=== PATIENT | male | born 1945 | race Caucasian/White ===

== ENCOUNTER 2021-10-27 13:17 | Emergency (ER) | payer MEDICARE, SELFPAY ==
[2021-10-27 13:32] VITALS: BP 161/93; PULSE 89; RESP 16; TEMP 36.6; O2SAT 96; BMI 29.2
--- NOTE | 2021-10-27 13:44 | CTR_ITS ---
PROCEDURE INFORMATION: Exam: CT Head Without Contrast Exam date and time: 10/27/2021 2:02 PM Age: 76 years old Clinical indication: Pain; Other: N/v; Headache not specified; Additional info: Severe headache with n/v TECHNIQUE: Imaging protocol: Computed tomography of the head without contrast. Radiation optimization: All CT scans at this facility use at least one of these dose optimization techniques: automated exposure control; mA and/or kV adjustment per patient size (includes targeted exams where dose is matched to clinical indication); or iterative reconstruction. COMPARISON: CT head wo con* [id number] 04/01/2016 1:31 AM RADIATION DOSE METRICS: Total DLP (mGy-cm): 886.06 FINDINGS: Brain: Moderate diffuse white matter disease likely reflecting chronic microvascular ischemic changes. Cerebral ventricles: No ventriculomegaly. Paranasal sinuses: Visualized sinuses are unremarkable. No fluid levels. Mastoid air cells: Visualized mastoid air cells are well aerated. Bones/joints: Unremarkable. No acute fracture. Soft tissues: Unremarkable. CT/CT head wo con* [id number] IMPRESSION: Negative for intracranial hemorrhage or mass effect
--- NOTE | 2021-10-27 13:54 | W.ED.HA ---
HPI - Headache General: Chief Complaint: Headache Stated Complaint: headache Time Seen by Provider: 10/27/21 13:43 History of Present Illness: Patient is a 76-year-old male comes to the ED with headache. Symptoms started yesterday. He does not have a history of migraine headaches and says he has never had a headache like this before. Pain starts at forehead and then radiates down the right side of his head and back to his neck. He rates the headache a 9 out of 10. He is also been having some nausea and vomiting with it. Denies any worsening of headache with loud noises or lights. Endorses some mild blurry vision since onset of headache. Denies any recent falls or head traumas to cause symptoms. Denies any numbness or tingling to 1 side of his body, weakness to 1 side of his body or any other neurological symptoms. Associated symptoms: Reports nausea and vomiting; Deny chest pain, fever(s) or rash Review of Systems Const: Denies: fever(s), chills or fatigue Eyes: Denies: change in vision or eye discomfort ENMT: Denies: throat pain, odynophagia, nasal discharge or nasal congestion Card: Denies: chest pain, palpitations, edema, swelling of feet/ankles, dyspnea on exertion or orthopnea Resp: Denies: dyspnea, productive cough or non-productive cough GI: Reports: nausea and vomiting; Denies: abdominal pain, diarrhea, constipation or hematochezia : Denies: flank pain, difficulty urinating, dysuria or hematuria Musc: Denies: neck pain, back pain or extremity swelling Skin/Breast: Denies: rash or new lesions Neuro: Reports: headache(s); Denies: numbness in extremities or weakness in extremities [facility] ED PFSH: Medical History No pertinent past medical history Surgical History No pertinent past surgical history Physical Exam Const: COMMON NORMALS: patient oriented x3 and alert GENERAL APPEARANCE: cooperative HENMT: COMMON NORMALS: normocephalic HEAD & SCALP: normocephalic MOUTH: Normal oral and palatal mucosa present THROAT: posterior oropharynx normal and uvula midline Eye: COMMON NORMALS: Equal, round and reactive pupils present, EOMs intact bilaterally and conjunctivae normal CONJUNCTIVA: Yes conjunctivae normal PUPIL: Yes Equal, round and reactive pupils present Neck/C-Spine: COMMON NORMALS: supple GENERAL: Yes normal visual inspection Resp: COMMON NORMALS: normal respiratory effort, No retractions, No use of accessory muscles and clear to auscultation bilaterally AUSCULTATION: clear to auscultation bilaterally Cardio: COMMON NORMALS: regular rate, regular rhythm, S1 normal heart sound present, S2 normal heart sound present, No gallops present (Cardio), No clicks present (Cardio), No murmurs present (Cardio) and Peripheral pulses 2+ throughout RATE: regular rate RHYTHM: regular rhythm HEART SOUNDS: S1 normal heart sound present and S2 normal heart sound present PERIPHERAL PULSES: Peripheral pulses 2+ throughout GI: COMMON NORMALS: Normal to inspection, nondistended, normoactive bowel sounds present, Soft to palpation, non-tender and no masses PALPATION: Yes Soft to palpation : COMMON NORMALS: Yes no CVA tenderness BLADDER/KIDNEY EXAM: Yes no CVA tenderness Back/Pelvis: COMMON NORMALS: no CVA tenderness Extremity: COMMON NORMALS: normal to inspection Neuro: COMMON NORMALS: patient oriented x3, CN's II-XII intact bilaterally, moves all extremities, no focal motor deficits and no sensory deficits noted SENSORIUM/ORIENTATION: Yes alert SENSORY EXAM: Yes extremities (intact) MOTOR EXAM: 5/5 motor strength present throughout Skin: GENERAL SKIN EXAM: dry skin Course Reevaluation(s): Reevaluation #1: Patient said his migraine is improved greatly and he now rates it a 4 out of 10. He says it is a lot more manageable and he like to go home and rest. Time: 15:28 Vital Signs: Vital signs: Vital Signs Temperature 97.8 F 10/27/21 13:32 Pulse Rate 78 10/27/21 15:35 Respiratory Rate 18 10/27/21 15:35 Blood Pressure 152/71 10/27/21 15:35 Pulse Oximetry 96 10/27/21 15:35 MDM - Headache Medical Decision Making Patient is a 76-year-old male comes to the ED with migraine headache. Denies any recent head injuries or trauma. He is having nausea and some vomiting. He rates his headache a 9 out of 10 and says the pain is in the forehead and radiates to the back of his head down into his neck. Vitals are stable. Exam of patient is benign and neuro exam showed no deficits. CBC and CMP were unremarkable. CT of head showed no intracranial hemorrhage or mass. Patient was given IV fluids, Reglan, Toradol, Benadryl and Decadron and his migraine improved. He was ready to be discharged home and rest. He was told to follow-up with his PCP in the next week for reevaluation return to ED precautions given. Patient understood and agreed with plan. Lab Data I reviewed the patient's lab results. : 10/27/21 13:58 10/27/21 13:[address] 10/27/21 13:44 IMPRESSION: Negative for intracranial hemorrhage or mass effect Laboratory Results WBC 9.5 10^3/uL (4.0-10.0) 10/27/21 13:58 RBC 5.07 10^6/uL (4.1-5.3) 10/27/21 13:58 Hgb 15.8 g/dL (11.7-16.6) 10/27/21 13:58 Hct 48.5 % (42.0-52.0) 10/27/21 13:58 MCV 95.7 fl (80-94) H 10/27/21 13:58 MCH 31.2 pg (28.0-34.0) 10/27/21 13:58 MCHC 32.6 g/dL (30.0-36.0) 10/27/21 13:58 RDW 14.4 % (12.1-15.1) 10/27/21 13:58 Plt Count 324 10^3/cmm (130-400) 10/27/21 13:58 MPV 9.3 fL (7.4-10.4) 10/27/21 13:58 Neut % (Auto) 77.3 % 10/27/21 13:58 Lymph % (Auto) 13.0 % 10/27/21 13:58 [place] % (Auto) 8.0 % 10/27/21 13:58 Eos % (Auto) 0.5 % 10/27/21 13:58 Baso % (Auto) 0.5 % 10/27/21 13:58 Neut # (Auto) 7.32 10^3/uL (1.8-7.7) 10/27/21 13:58 Lymph # (Auto) 1.2 10^3/uL (0.8-4.8) 10/27/21 13:58 [place] # (Auto) 0.8 10^3/uL (0.2-0.9) 10/27/21 13:58 Eos # (Auto) 0.1 10^3/uL (0.0-0.8) 10/27/21 13:58 Baso # (Auto) 0.1 10^3/uL (0.0-0.1) 10/27/21 13:58 Nucleated RBC % (auto) 0 % 10/27/21 13:58 Nucleated RBCs # 0.0 /100WBC 10/27/21 13:58 Sodium 135 mmol/L (136-145) L 10/27/21 13:58 Potassium 4.0 mmol/L (3.5-5.1) 10/27/21 13:58 Chloride 98 mmol/L (98-107) 10/27/21 13:58 Carbon Dioxide 27 mmol/L (22-29) 10/27/21 13:58 Anion Gap 14.0 (5-19) 10/27/21 13:58 BUN 13 mg/dL (8-23) 10/27/21 13:58 Creatinine 1.3 mg/dL (0.7-1.2) H 10/27/21 13:58 GFR Calculation Not Reportable 10/27/21 13:58 Glucose 152 mg/dL (65-115) H 10/27/21 13:58 Calculated Osmolality 283 mOsm/kg (285-295) L 10/27/21 13:58 Calcium 8.5 mg/dL (8.5-10.5) 10/27/21 13:58 Total Bilirubin 0.7 mg/dL (0.15-1.2) 10/27/21 13:58 AST 14 U/L (0-40) 10/27/21 13:58 ALT 6 U/L (0-41) 10/27/21 13:58 Alkaline Phosphatase 71 IU/L (40-130) 10/27/21 13:58 Total Protein 6.8 g/dL (6.6-8.7) 10/27/21 13:58 Albumin 3.9 g/dL (3.5-5.2) 10/27/21 13:58 Globulin 2.9 g/dL (1.3-4.6) 10/27/21 13:58 Discharge Plan Discharge Patient Disposition: Home Clinical Impression: Migraine headache Qualifiers: Migraine type: without aura Status migrainosus presence: without status migrainosus Intractability: not intractable Qualified Code(s): G43.009 - Migraine without aura, not intractable, without status migrainosus Condition: Stable Discharge Orders: Discharge ED (Routine); Ordered 10/27/21 Ordered By: Yusuf Porter Referrals: Esther Cruz NP [Primary Care Provider] - Discharge Diet: Regular Discharge Activity: Increase activity as tolerated Patient Instructions: Headache - Migraine (Adult) Activity Restrictions/Additional Instructions: Follow-up with medical provider as directed next 5 to 7 days reevaluation. Take [id number] Tylenol or Motrin for any reoccurring headaches. Return to the ER or your medical provider if condition worsens. Please read and understand discharge instructions. Thank you for choosing [facility] for your healthcare needs today. Please realize this is an emergency room and that we are providing you with a medical screening exam and this may not be complete and all inclusive of all the testing and or work up that you may need to determine your ailment or severity of your illness. It is very important that you follow up as instructed or that you return to the Emergency Department should you have concerns or if your condition changes or worsens in any way. Coding Level of Care Code ED Lasting Room Machine Operator for Opal Fwsoo Exam Comprehensive
[2021-10-27 14:06] LABS: Basophils # 0.1 10^3/uL (0.0-0.1); Basophils % 0.5 %; Eosinophils # 0.1 10^3/uL (0.0-0.8); Eosinophils % 0.5 %; Hematocrit 48.5 % (42.0-52.0); Hemoglobin 15.8 g/dL (11.7-16.6); Lymphocytes # 1.2 10^3/uL (0.8-4.8); Mean Corpuscular HGB Conc 32.6 g/dL (30.0-36.0); Mean Corpuscular Hemoglobin 31.2 pg (28.0-34.0); Mean Corpuscular Volume 95.7 fl (80-94); Mean Platelet Volume 9.3 fL (7.4-10.4); Monocytes # 0.8 10^3/uL (0.2-0.9); Neutrophils # 7.32 10^3/uL (1.8-7.7); Neutrophils % 77.3 %; Nucleated Red Blood Cells % 0 %; Platelet Count 324 10^3/cmm (130-400); Red Blood Count 5.07 10^6/uL (4.1-5.3); Red Cell Distribution Width 14.4 % (12.1-15.1); White Blood Count 9.5 10^3/uL (4.0-10.0)
[2021-10-27] MEDS: dexamethasone 10 mg/mL INJ IVP (14:07)
[2021-10-27] MEDS: diphenhydrAMINE 50 mg/mL SDV 1mL 25 MG IVP (14:10)
[2021-10-27] MEDS: metoclopramide 5 mg/mL SDV 2 mL 10 MG IVP (14:11)
[2021-10-27] MEDS: ketorolac 30 mg/mL INJ IVP (14:12)
[2021-10-27] MEDS: sodium chloride 0.9% 500 ML 999 ML IV (14:15)
[2021-10-27 14:31] LABS: Alanine Aminotransferase 6 U/L (0-41); Albumin Level 3.9 g/dL (3.5-5.2); Alkaline Phosphatase 71 IU/L (40-130); Blood Urea Nitrogen 13 mg/dL (8-23); Calcium 8.5 mg/dL (8.5-10.5); Carbon Dioxide 27 mmol/L (22-29); Chloride 98 mmol/L (98-107); Globulin 2.9 g/dL (1.3-4.6); Glucose 152 mg/dL (65-115); Osmolality Calculated 283 mOsm/kg (285-295); Sodium 135 mmol/L (136-145); Total Bilirubin 0.7 mg/dL (0.15-1.2); Total Protein 6.8 g/dL (6.6-8.7)
[2021-10-27 14:32] LABS: Aspartate Amino Transferase 14 U/L (0-40)
[2021-10-27 14:56] VITALS: BP 152/71; PULSE 72; RESP 16; O2SAT 96
[2021-10-27 15:35] VITALS: BP 152/71; PULSE 78; RESP 18; O2SAT 96
== END 2021-10-27 15:36 | disposition home or self-care (01) ==
PROVIDERS: Emergency Provider Physician Assistant; PCP Nurse Practitioner Family
DX: G43.009 Migraine without aura, not intractable, without status migrainosus (principal)
CPT/HCPCS: 70450; 80053; 85025; 96374; 96375; 99283; J1100; J1200; J1885; J2765; J7040

== ENCOUNTER → 2023-04-22 16:00 | Outpatient (BNVA) | payer OTHER, SELFPAY | PROVIDERS: PCP Family Medicine; Referring Provider Family Medicine; Visit Provider Dermatology | DX: D48.5 Neoplasm of uncertain behavior of skin (principal); L82.1 Other seborrheic keratosis; L81.4 Other melanin hyperpigmentation; L57.8 Other skin changes due to chronic exposure to nonionizing radiation; L57.0 Actinic keratosis | CPT/HCPCS: 17000; 69100; 99203 ==

== ENCOUNTER 2023-05-06 16:13 | Outpatient (CLI) | payer OTHER, SELFPAY ==
--- NOTE | 2023-05-06 16:17 | CT_ITS ---
WS: [id number] CT NECK TECHNIQUE: Contrast-enhanced CT of the neck with coronal and sagittal reformatted images. CLINICAL INFORMATION: NEOPLASM OF UNCERTAIN BEHAVIOR SKIN, SEBORRHEIC KERATOSIS COMPARISON: None. DLP: 163.[address] scans at [facility] use at least one of these dose optimization techniques: automated e xposure control; mA and/or kV adjustment per patient size (includes targeted exams where dose is matc hed to clinical indication); or iterative reconstruction. FINDINGS: Soft tissue thickening with enhancement along the dorsal LEFT ear auricle extending to the lobule inferiorly. Soft tissue thickening and enhancement extends to involve the undersurface of the ear with enhancement into the cartilaginous EAC. No involvement of the mastoid. Soft tissue thickenin g and enhancement abuts the adjacent superficial lobe of the parotid gland with loss of the normal fa t plane. Circumferential enhancement involves the cartilaginous EAC. No involvement of the bony EAC. Normal posterior nasopharynx. Normal parapharyngeal fat. Small nodules in the thyroid. No cervical ly mphadenopathy. Lung apices are well aerated. Enlarged RIGHT upper mediastinal lymph node measuring 1. 2 x 1.0 cm. Recommend further evaluation with chest CT. Additional smaller anterior mediastinal lymph nodes. Mastoid air cells are well aerated. Paranasal sinuses are well aerated. Normal posterior nasopharynx. RIGHT parotid gland is normal. Normal submandibular glands. Straightening of the normal cervical lordosis. Prior postoperative changes ACDF C3-4 and C5-6. IMPRESSION: 1. Enlarged RIGHT upper mediastinal lymph node. Recommend further evaluation with chest CT. 2. Enhancing posterior LEFT auricle soft tissue mass extending to the scalp and cartilaginous EAC. T his abuts the LEFT parotid gland with loss of the normal fat plane. See above for additional detail. 3. No cervical lymphadenopathy.
--- NOTE | 2023-05-06 16:17 | CT_ITS ---
WS: [id number] CT HEAD TECHNIQUE: Noncontrast and contrast-enhanced CT of the head. CLINICAL INFORMATION: NEOPLASM OF UNCERTAIN BEHAVIOR SKIN, SEBORRHEIC KERATOSIS COMPARISON: None. DLP: 1082.[address] scans at [facility] use at least one of these dose optimization techniques: automated e xposure control; mA and/or kV adjustment per patient size (includes targeted exams where dose is matc hed to clinical indication); or iterative reconstruction. FINDINGS: No evidence intracranial hemorrhage or mass effect. Ventricular system and basilar cisterns are paten t. Moderate to advanced small vessel changes with moderate parenchymal volume loss worse in the front al lobes. Intracranial vascular calcification. No abnormal intracranial enhancement. Partially included soft tissue thickening and enhancement along the posterior left ear. This is better visualized on the neck CT. IMPRESSION: 1. No evidence of intracranial hemorrhage or mass effect. 2. Moderate to advanced small vessel changes with moderate parenchymal volume loss 3. Intracranial vascular calcification. 4. Paranasal sinuses and mastoid air cells well aerated. 5. No abnormal intracranial enhancement.
[2023-05-06 16:43] LABS: Blood Urea Nitrogen 17 mg/dL (8-23)
[2023-05-06] MEDS: iohexol 350 mg/mL 500 mL Btl (per mL) IV (17:04)
== END 2023-05-06 16:14 | disposition home or self-care (01) ==
PROVIDERS: PCP Family Medicine; Visit Provider Dermatology
DX: D48.5 Neoplasm of uncertain behavior of skin (principal); I67.2 Cerebral atherosclerosis; L82.1 Other seborrheic keratosis
CPT/HCPCS: 70470; 70491; 82565; 84520; Q9967

== ENCOUNTER 2023-06-27 15:25 | Outpatient (CLI) | payer OTHER, SELFPAY ==
--- NOTE | 2023-06-27 15:37 | CT_ITS ---
WS: [id number] CT scan of the chest with IV contrast, additional two-dimensional coronal and sagittal reconstruction was performed. 06/27/2023 Clinical Data: LOCALIZED ENLARGED LYMPH NODES Comparison: CT chest, 11/15/2014 DLP: 370.[address] scans at [facility] use at least one of these dose optimization techniques: automated e xposure control; mA and/or kV adjustment per patient size (includes targeted exams where dose is matc hed to clinical indication); or iterative reconstruction. Findings: No nodules, masses or effusions are seen. The thyroid gland shows normal enhancement. The heart size is normal with no pericardial effusion. No pneumonia or pneumothorax is seen. The pulmonary arterial system and thoracic aorta demonstrate no abnormalities or dilatations. The trachea bifurcates normall y into the bronchi. There is no axillary or significant mediastinal adenopathy. There is minimal oste oarthritis of the thoracic vertebral bodies. The upper abdomen demonstrates low-density areas in the liver which are probably cysts. The cortical margins of both kidneys are thin. Impression: Negative CT scan of the chest with IV contrast.
[2023-06-27 16:04] LABS: Blood Urea Nitrogen 15 mg/dL (8-23)
[2023-06-27] MEDS: iohexol 350 mg/mL 500 mL Btl (per mL) IV (16:27)
== END 2023-06-27 15:26 | disposition home or self-care (01) ==
LOC: RAD 15:25
PROVIDERS: PCP Family Medicine; Visit Provider Dermatology
DX: C44.92 Squamous cell carcinoma of skin, unspecified (principal); R59.0 Localized enlarged lymph nodes
CPT/HCPCS: 71260; 82565; 84520; Q9967

== ENCOUNTER 2023-06-28 21:16 | Emergency (ER) | payer OTHER, SELFPAY ==
[2023-06-28 21:39] VITALS: BP 162/91; PULSE 73; RESP 18; TEMP 36.7; O2SAT 97; BMI 27.3
--- NOTE | 2023-06-28 22:41 | W.ED.SKABFB ---
HPI - Skin/Abscess/Foreign Bdy General: Chief complaint: Skin/Abscess/Foreign Body Stated complaint: redness a little swollen both arms Time Seen by Provider: 06/28/23 21:55 History of Present Illness: Amari is a 78-year-old man that presents to the emergency department with complaints of rash to right forearm. There is evidence of rash beginning on the left forearm. Onset of symptoms today Patient is currently under the care of a site medical director and recently had a CT due to an abnormal lesion on the left ear. This rash began in the last 24 hours and has worsened. It is flat and erythematous. There is no warmth. No wounds or drainage Review of Systems General: Reports: 10 or more systems reviewed and unremarkable except in HPI and below PFSH ED PFSH: Medical History No pertinent past medical history Surgical History No pertinent past surgical history Physical Exam Const: COMMON NORMALS: patient oriented x3 and alert GENERAL APPEARANCE: cooperative HENMT: COMMON NORMALS: normocephalic HEAD & SCALP: normocephalic MOUTH: Normal oral and palatal mucosa present THROAT: posterior oropharynx normal and uvula midline Neck/C-Spine: COMMON NORMALS: supple GENERAL: Yes normal visual inspection Resp: COMMON NORMALS: normal respiratory effort, No retractions and No use of accessory muscles Cardio: OTHER: Patient is pink warm and dry Extremities are well-perfused No edema Denies chest pain or shortness of breath Extremity: COMMON NORMALS: normal to inspection Neuro: COMMON NORMALS: patient oriented x3, CN's II-XII intact bilaterally, moves all extremities, no focal motor deficits and no sensory deficits noted SENSORIUM/ORIENTATION: Yes alert SENSORY EXAM: Yes extremities (intact) MOTOR EXAM: 5/5 motor strength present throughout Skin: GENERAL SKIN EXAM: dry skin, ecchymosis and other (Rash to right forearm.) Course Vital Signs: Vital signs: Vital Signs Temperature 98.0 F 06/28/23 21:39 Pulse Rate 73 06/28/23 21:39 Respiratory Rate 18 06/28/23 21:39 Blood Pressure 162/91 06/28/23 21:39 Pulse Oximetry 97 06/28/23 21:39 Oxygen Delivery Me thod Room Air 06/28/23 21:39 MDM - Skin/Abscess/Foreign Bdy Medicial Decision Making Patient was evaluated in the emergency department today for rash to right forearm. Differential diagnosis includes cellulitis, contact dermatitis, allergy. Based on the presentation I believe the patient has contact dermatitis. I provided him with a dose of hydrocortisone cream here in the emergency department and provided a prescription. Now there is still a concern that this may be a cellulitis that is evolving. I have talked with patient and his daughter about observing his symptoms. If they worsen over the next 24 hours they should begin to use the cephalexin that I prescribed Patient does have a site medical director to be seen. I have advised him to follow-up with that site medical director this week All questions answered No radiology studies performed this visit Discharge Plan Discharge Patient Disposition: Home Clinical Impression: Contact dermatitis Qualifiers: Contact dermatitis type: unspecified Contact dermatitis trigger: unspecified trigger Qualified Code(s): L25.9 - Unspecified contact dermatitis, unspecified cause Condition: Stable Prescriptions: New hydrocortisone 1 % cream 1 applic topical BID Qty: 28.35 0RF cephalexin 500 mg capsule 500 mg PO Q6H 7 Days Qty: 28 0RF Discharge Orders: Discharge ED (Routine); Ordered 06/28/23 Ordered By: Tamara Aguirre Discharge Diet: Advance as tolerated Discharge Activity: Resume usual activity Patient Instructions: Contact Dermatitis (DC), Cellulitis (ED), Pain Management Activity Restrictions/Additional Instructions: I have prescribed you hydrocortisone cream which is for contact dermatitis. This is an inflammatory process of the skin. The hydrocortisone cream will help to soothe and resolve the inflammation. The alternative diagnosis is cellulitis or infection in the skin. I do not believe that appears to be cellulitis as of now however things may evolve over the next 24 hours. As this is a possibility I have provided a prescription of cephalexin should you need it. Do not fill this unless you need the prescription filled. Follow-up with your site medical director as discussed. Coding Level of Care Code ED Apiculture Teacher for Opal Douglas
== END 2023-06-29 00:16 | disposition home or self-care (01) ==
PROVIDERS: Emergency Provider Nurse Practitioner
DX: L25.9 Unspecified contact dermatitis, unspecified cause (principal)
CPT/HCPCS: 99283

== ENCOUNTER 2023-07-29 11:46 | Emergency (ER) | payer OTHER, SELFPAY ==
[2023-07-29 11:53] VITALS: BP 178/97; PULSE 97; RESP 16; TEMP 36.8; O2SAT 95; BMI 27.0
[2023-07-29 14:41] LABS: Add Urine Microscopic? NO; Charge for UA Resulting for Rev
--- NOTE | 2023-07-29 14:48 | ED_ITS ---
HPI - Male Genitourinary General: Chief complaint: Urogenital-Male Stated complaint: unine problems Time Seen by Provider: 07/29/23 14:48 Source: patient Mode of arrival: ambulatory [facility] ED PFSH: Medical History No pertinent past medical history Surgical History No pertinent past surgical history Course Vital Signs: Vital signs: Vital Signs Temperature 98.2 F 07/29/23 11:53 Pulse Rate 97 07/29/23 11:53 Respiratory Rate 16 07/29/23 11:53 Blood Pressure 178/97 07/29/23 11:53 Pulse Oximetry 95 07/29/23 11:53 Oxygen Delivery Me thod Room Air 07/29/23 11:53 Discharge Plan Discharge Condition: Stable Prescriptions: No Action hydrocortisone 1 % cream 1 applic topical BID Qty: 28.35 0RF Coding Level of Care Code ED Senior Systems Engineer for Opal Douglas
[2023-07-29 14:49] LABS: Bilirubin Urine Neg (Negative); Blood Urine Neg (Negative); Glucose Urine UA Norm (Normal); Ketones Urine 1+ (Negative); Leukocyte Esterase Urine Negative (Negative); Nitrate Urine Negative (Negative); Protein Urine Neg (Negative); Urine Appearance Clear (CLEAR); Urine Color Yellow (Yellow); Urobilinogen Urine 4 mg/dL (Negative); pH Urine 6.5 (5-7)
--- NOTE | 2023-07-29 14:49 | XR_ITS ---
WS: [id number] Exam: XR knee LT 3V* [id number] Date/Time of Exam: 07/29/2023 3:22 PM Reason For Exam: pain Comparison 04/24/2018. There is severe degenerative narrowing of the medial joint compartment with near [id number] articul ation. Chondrocalcinosis of the lateral meniscus. Degenerative change of the patellofemoral joint wit h spurring of the posterior patella. Moderate effusion in the suprapatellar bursa. Varus deformity of the knee. No fracture. IMPRESSION: 1. Advanced degenerative change and chondrocalcinosis. 2. Joint effusion.
--- NOTE | 2023-07-29 14:58 | ED_ITS ---
HPI - General Adult 2 General: Chief complaint: Urogenital-Male Stated complaint: unine problems Time Seen by Provider: 07/29/23 14:48 Source: patient Mode of arrival: ambulatory History of Present Illness: 78-year-old male presents emergency room with complaints of left knee pain several days ago he tripped while walking on sidewalk hit his left knee on the lamppost as he went down. Has had trouble with his knees in the past evidently had some injections has not had any surgeries he has had a back and neck surgery. As a secondary complaint he is having nocturia 3+ times per night in the morning will actually have some overflow incontinence. He is not really having any specific back pain no radicular leg pain. He is not currently on any medications other than he been taking some old prescription narcotics for the knee pain since he stumbled earlier this week Onset (ago): day(s) Location: lower extremity (Left knee) Severity: moderate Quality: aching Pain Consistency: constant Relieving factors: none Exacerbating factors: none Associated symptoms: Deny chest pain, confusion, cough, diaphoresis, decreased appetite, dyspnea, fevers/chills, headache(s), malaise, nausea, rash, palpitations, seizures, short of breath, syncope, vomiting or weakness Review of Systems 2 Const: Denies: fever(s), chills, malaise or diaphoresis Card: Denies: chest pain, palpitations or syncope Resp: Denies: dyspnea GI: Denies: nausea or vomiting : Reports: difficulty urinating, urinary dribbling and difficulty starting urination; Denies: flank pain, dysuria, urinary frequency or urinary urgency Musc: Reports: joint pain; Denies: neck pain or back pain Skin/Breast: Denies: rash Neuro: Denies: headache(s) or confusion PFSH ED 2 PFSH: Medical History No pertinent past medical history Surgical History No pertinent past surgical history Physical Exam 2 Const: GENERAL APPEARANCE: cooperative and comfortable O RIENTATION/CONSCIOUSNESS: Yes awake, Yes oriented to person, Yes oriented to place and Yes oriented to time HENMT: COMMON NORMALS: normocephalic, atraumatic and hearing grossly normal bilaterally HEAD & SCALP: normocephalic and atraumatic Resp: COMMON NORMALS: normal respiratory effort, No retractions, No use of accessory muscles and clear to auscultation bilaterally AUSCULTATION: clear to auscultation bilaterally Cardio: COMMON NORMALS: regular rate, regular rhythm and No murmurs present (Cardio) RATE: regular rate RHYTHM: regular rhythm GI: COMMON NORMALS: Soft to palpation and No hepatosplenomegaly present A USCULTATION: Yes normoactive bowel sounds PALPATION: Yes Soft to palpation, No Tenderness to palpation present (GI), No Guarding due to palpation present (GI) and Yes No hepatosplenomegaly present Extremity: COMMON NORMALS: normal to inspection, capillary refill normal, no clubbing, cyanosis or edema, no calf tenderness and no pedal edema OTHER: Examination of the left knee there is some laxity of the lateral collateral ligament medial collateral ligaments intact on valgus stress and on palpation very small joint effusion chronic arthritic changes joint otherwise no specific acute changes Neuro: SENSORIUM/ORIENTATION: Yes oriented to person, Yes oriented to place and Yes oriented to time Skin: COMMON NORMALS: no rashes or lesions noted GENERAL SKIN EXAM: no rashes or lesions noted Course 2 Vital Signs: Vital signs: Vital Signs Temperature 98.2 F 07/29/23 11:53 Pulse Rate 85 07/29/23 16:39 Respiratory Rate 16 07/29/23 16:39 Blood Pressure 158/90 07/29/23 16:39 Pulse Oximetry 97 07/29/23 16:39 Oxygen Delivery Me thod Room Air 07/29/23 16:00 MDM - General Adult Medical Decision Making X-ray of the knee unremarkable no signs of fracture. She does have a lot of arthritic complaints. He does not have significant urinary retention only 76 mL in the bladder on postvoid residual. Will treat him with anti-inflammatories for the knee pain refer to Ortho by primary care if felt appropriate. Will start on tamsulosin 1.4 nightly for relief of his prostate symptoms follow-up with his primary care. After he completed the workup and reviewed the findings of the daughter was with the patient was concerned about he was having some hallucinations although she correlates it with him using an old prescription of narcotics. Encouraged him to avoid narcotics if symptoms persist follow-up with primary care return to the emergency room or establish with [facility]. At this point he is not a harm to self or others and not acutely psychotic Medical Records I reviewed the patient's medical records. Lab Data I reviewed the patient's lab results. 07/29/23 15:02 07/29/23 15: Laboratory Results WBC 6.42 10^3/uL (3.29-11.43) 07/29/23 15: RBC 5.25 10^6/uL (3.85-5.65) 07/29/23 15: Hgb 17.20 g/dL (11.27-16.99) H 07/29/23 15: Hct 52.8 % (37-53) 07/29/23: MCV 100.6 fl (82-101) 07/29/23 15: MCH 32.8 pg (27-33) 07/29/23: MCHC 32.6 g/dL (30-55) 07/29/23 15: RDW 14.6 % (12.1-15.1) 07/29/23 15: Plt Count 252 10^3/cmm (157-399) 07/29/23 15: MPV 9.2 fL (7.4-10.4) 07/29/23 15: Neut % (Auto) 67.9 % 07/29/23 15: Lymph % (Auto) 18.8 % 07/29/23: [place] % (Auto) 11.4 % 07/29/23: Eos % (Auto) 0.9 % 07/29/23: Baso % (Auto) 0.5 % 07/29/23: Neut # (Auto) 4.36 10^3/uL (1.8-7.7) 07/29/23: Lymph # (Auto) 1.2 10^3/uL (0.8-4.8) 07/29/23: [place] # (Auto) 0.7 10^3/uL (0.2-0.9) 07/29/23 15: Eos # (Auto) 0.1 10^3/uL (0.0-0.8) 07/29/23: Baso # (Auto) 0.0 10^3/uL (0.0-0.1) 07/29/23 15:02 Nucleated RBC % (auto) 0 % 07/29/23 15:02 Nucleated RBCs # 0.0 /100WBC 07/29/23 15:02 Sodium 138 mmol/L (136-145) 07/29/23 15:02 Potassium 4.0 mmol/L (3.5-5.1) 07/29/23 15:02 Chloride 101 mmol/L (98-107) 07/29/23 15:02 Carbon Dioxide 25 mmol/L (22-29) 07/29/23 15:02 Anion Gap 16.0 (5-19) 07/29/23 15:02 BUN 13 mg/dL (8-23) 07/29/23 15:02 Creatinine 1.3 mg/dL (0.7-1.2) H 07/29/23 15:02 GFR Calculation Not Reportable 07/29/23 15: Glucose 130 mg/dL (65-115) H 07/29/23 15:02 Calculated Osmolality 288 mOsm/kg (285-295) 07/29/23 15:02 Calcium 10.2 mg/dL (8.5-10.5) 07/29/23 15:02 Total Bilirubin 0.9 mg/dL (0.15-1.2) 07/29/23 15:02 AST 12 U/L (0-40) 07/29/23 15:02 ALT 7 U/L (0-41) 07/29/23 15:02 Alkaline Phosphatase 69 U/L (40-130) 07/29/23 15:02 Total Protein 7.5 g/dL (6.6-8.7) 07/29/23 15:02 Albumin 4.0 g/dL (3.5-5.2) 07/29/23 15:02 Globulin 3.5 g/dL (1.3-4.6) 07/29/23 15:02 Urine Color Yellow (Yellow) 07/29/23 14:37 Urine Appearance Clear (CLEAR) 07/29/23 14:37 Urine pH 6.5 (5-7) 07/29/23 14:37 Ur Specific Advance 1.010 (1.005-1.030) 07/29/23 14:37 Urine Protein Neg (Negative) 07/29/23 14:37 Urine Glucose (UA) Norm (Normal) 07/29/23 14:37 Urine Ketones 1+ (Negative) H 07/29/23 14:37 Urine Blood Neg (Negative) 07/29/23 14:37 Urine Nitrate Negative (Negative) 07/29/23 14:37 Urine Bilirubin Neg (Negative) 07/29/23 14:37 Urine Urobilinogen 4 mg/dL (Negative) H 07/29/23 14:37 Ur Leukocyte Esterase Negative (Negative) 07/29/23 14:37 All radiology interpretation(s) finalized by discharge Discharge Plan Discharge Patient Disposition: Home Clinical Impression: Benign prostatic hyperplasia, Knee sprain Condition: Stable Prescriptions: New diclofenac sodium 75 mg tablet,delayed release (DR/EC) 75 mg PO Q12H PRN (Reason: pain) Qty: 20 0RF tamsulosin 0.4 mg capsule 0.4 mg PO DAILY Qty: 30 0RF No Action hydrocortisone 1 % cream 1 applic topical BID Qty: 28.35 0RF Discharge Orders: Discharge ED (Routine); Ordered 07/29/23 Ordered By: Jarad Lobo Discharge Diet: Usual diet Discharge Activity: Increase activity as tolerated Patient Instructions: Opioid Safety, Pain Management Activity Restrictions/Additional Instructions: Thank you for choosing [facility] for your healthcare needs today. Please realize this is an emergency room and that we are providing you with a medical screening exam and this may not be complete and all inclusive of all the testing and or work up that you may need to determine your ailment or severity of your illness. It is very important that you follow up as instructed or that you return to the Emergency Department should you have concerns or if your condition changes or worsens in any way. You are seen today for complaints of the knee pain as well as difficulty with urination. Knee x-ray did not show any acute fractures. Bladder scan did not show significant urinary retention based on the symptoms you had presented suspect you are having symptoms of BPH. For your knee started on diclofenac 1 pill twice daily. For the BPH recommend tamsulosin: 1 pill at night before bed. As symptoms persist follow-up with your primary care doctor. Recommend avoiding narcotics as these can cause significant side effects. Coding Level of Care Code ED Fiberglass Laminator for Opal Douglas
[2023-07-29 15:00] VITALS: BP 161/95; PULSE 88; RESP 17; O2SAT 95
[2023-07-29 15:07] LABS: Basophils % 0.5 %; Eosinophils # 0.1 10^3/uL (0.0-0.8); Eosinophils % 0.9 %; Hematocrit 52.8 % (37-53); Lymphocytes # 1.2 10^3/uL (0.8-4.8); Lymphocytes % 18.8 %; Mean Corpuscular HGB Conc 32.6 g/dL (30-55); Mean Corpuscular Hemoglobin 32.8 pg (27-33); Mean Corpuscular Volume 100.6 fl (82-101); Mean Platelet Volume 9.2 fL (7.4-10.4); Monocytes # 0.7 10^3/uL (0.2-0.9); Monocytes % 11.4 %; Neutrophils # 4.36 10^3/uL (1.8-7.7); Neutrophils % 67.9 %; Nucleated Red Blood Cells % 0 %; Platelet Count 252 10^3/cmm (157-399); Red Blood Count 5.25 10^6/uL (3.85-5.65); Red Cell Distribution Width 14.6 % (12.1-15.1); White Blood Count 6.42 10^3/uL (3.29-11.43)
[2023-07-29 15:27] LABS: Alanine Aminotransferase 7 U/L (0-41); Alkaline Phosphatase 69 U/L (40-130); Aspartate Amino Transferase 12 U/L (0-40); Blood Urea Nitrogen 13 mg/dL (8-23); Calcium 10.2 mg/dL (8.5-10.5); Carbon Dioxide 25 mmol/L (22-29); Chloride 101 mmol/L (98-107); Globulin 3.5 g/dL (1.3-4.6); Glucose 130 mg/dL (65-115); Osmolality Calculated 288 mOsm/kg (285-295); Sodium 138 mmol/L (136-145); Total Bilirubin 0.9 mg/dL (0.15-1.2); Total Protein 7.5 g/dL (6.6-8.7)
[2023-07-29 16:00] VITALS: BP 154/88; PULSE 93; RESP 16; O2SAT 94
[2023-07-29 16:39] VITALS: BP 158/90; PULSE 85; RESP 16; O2SAT 97
== END 2023-07-29 16:39 | disposition home or self-care (01) ==
PROVIDERS: Emergency Medicine; Emergency Provider Family Medicine
DX: N40.0 Benign prostatic hyperplasia without lower urinary tract symptoms (principal); S83.92XA Sprain of unspecified site of left knee, initial encounter; W01.0XXA Fall on same level from slipping, tripping and stumbling without subsequent striking against object, initial encounter
CPT/HCPCS: 36415; 51798; 73562; 80053; 81003; 85025; 99284

== ENCOUNTER 2023-08-07 08:59 | Outpatient (CLI) | payer MEDICARE, MEDICAID, SELFPAY ==
--- NOTE | 2023-08-07 09:03 | MR_ITS ---
WS: [id number] MRI LUMBAR SPINE NONCONTRAST HISTORY: FAILED BACK SYNDROME/SPONDYLOSIS COMPARISON: 05/20/2018 TECHNIQUE: Sagittal and axial multisequence imaging is submitted. Prior anterior cervical fusion. There is a tiny central disc protrusion at C6-7 contacting the ventra l cord. Straightening of the normal lumbar lordosis. Posterior lumbar fusion at L5-S1 with interbody spacer a t L5-S1. L1 anterolisthesis by 4.6 mm. 2 mm retrolisthesis of L3. Disc spaces are all narrowed and de siccated. Mild progression of degenerative changes since 2018. No acute fracture or marrow edema. Conus terminates normally at L1-2 disc level. L1-L2: Diffuse annular disc bulging with ligamentum flavum and facet arthritis. Effacement of CSF wit h mild progression of stenosis as compared to 2018. There is disc encroachment into the subarticular recesses with severe bilateral foraminal stenosis. Severe central, bilateral subarticular recess and foraminal stenosis. There is disc contacting the exiting and traversing L1 and L2 nerve roots. L2-L3: Diffuse osteophytic ridging, annular disc bulging with ligamentum flavum and facet arthritis. Progression of central and bilateral subarticular recess encroachment. Moderate central and bilateral subarticular recess encroachment. No significant foraminal stenosis. L3-L4: Marked annular disc bulging with osteophytic ridging. Ligamentum flavum and facet arthritis. R IGHT paracentral disc protrusion. Disc protrusion is new since the prior study. Severe central, bilat eral subarticular recess and moderate foraminal stenosis. L4-L5: Diffuse annular disc bulging and osteophytic ridging. Mild LEFT and moderate RIGHT foraminal s tenosis. No significant central stenosis. L5-S1: Large laminectomy defect. Mild foraminal stenosis. IMPRESSION: 1. Prior posterior lumbar fusion at L5-S1 with large laminectomy defect. 2. L1 anterolisthesis by 4.6 mm. 3. L1-2: Severe central, bilateral subarticular recess and foraminal stenosis with progression since the prior study. 4. L2-3: Moderate central and bilateral subarticular recess stenosis. 5. L3-4: Severe central, bilateral subarticular recess and moderate foraminal stenosis. There is a n ew small RIGHT paracentral disc protrusion since 2018. 6. L4-5: Moderate RIGHT and mild LEFT foraminal stenosis. No central stenosis.
== END 2023-08-07 09:00 | disposition home or self-care (01) ==
PROVIDERS: Visit Provider Nurse Practitioner Family
DX: M96.1 Postlaminectomy syndrome, not elsewhere classified (principal); M47.816 Spondylosis without myelopathy or radiculopathy, lumbar region; Z98.1 Arthrodesis status; M48.061 Spinal stenosis, lumbar region without neurogenic claudication; M51.26 Other intervertebral disc displacement, lumbar region
CPT/HCPCS: 72148